=== PATIENT | female | born 1945 | race Caucasian/White ===

== ENCOUNTER 2016-09-09 08:22 | Day surgery (SDC) | payer MEDICARE ==
--- NOTE | ~2016-09-09 | EGD ---
EGD REPORT [facility] [address] [address] NAME: LUANA NESS : [birth year] STATUS : REG [facility] [place] PAT#: [id number] AGE: 71 ADM/REG DATE : 09/09/16 MR#: [id number] REPORT SERV DATE: 09/09/16 DICTATED BY: SUNSHINE DESAI DATE: 09/09/16 REPORT STATUS : Draft TRANSCRIBED BY: [employer] DATE: 09/09/16 [facility] Patient Name: Luana Ness Date of : 1945 Attending MD: SUNSHINE DESAI MD Procedure Date No Time: 09/09/2016 Procedure: Colonoscopy Indications: High risk colon cancer surveillance: Personal history of colonic polyps Referring MD: LAWSON HUERTA, LAWSON DOMINGUEZ MD Medicines: as per anesthesia Complications: No immediate complications. Procedure: Pre-Anesthesia Assessment: - ASA Grade Assessment: III - A patient with severe systemic disease. After I obtained informed consent, the scope was passed under direct vision. Throughout the procedure, the patient's blood pressure, pulse, and oxygen saturations were monitored continuously. The [facility] [id number] was introduced through the anus and advanced to the cecum, identified by appendiceal orifice and ileocecal valve. The colonoscopy was somewhat difficult due to restricted mobility of the colon, significant looping and a tortuous colon. The patient tolerated the procedure. The quality of the bowel preparation was fair. Findings: The perianal and digital rectal examinations were normal. The colon (entire examined portion) appeared normal. Impression: - The entire examined colon is normal. Recommendation: - Repeat colonoscopy in 5 years for surveillance. Procedure Code(s): --- Professional --- 95488, Colonoscopy, flexible, proximal to splenic flexure; diagnostic, with or without collection of specimen(s) by brushing or washing, with or without colon decompression (separate procedure) Diagnosis Code(s): --- Professional --- Z86.010, Personal history of colonic polyps CPT copyright 2013 [employer]. All rights reserved. EGD REPORT [facility] [address] [place] [address] NAME: LUANA NESS : [birth year] STATUS : REG [facility] [place] PAT#: [id number] AGE: 71 ADM/REG DATE : 09/09/16 MR#: [id number] REPORT SERV DATE: 09/09/16 DICTATED BY: SUNSHINE DESAI. DATE: 09/09/16 REPORT STATUS : Draft TRANSCRIBED BY: [employer] DATE: 09/09/16 The codes documented in this report are preliminary and upon health information coder review may be revised to meet current compliance requirements. SUNSHINE DESAI MD 09/09/2016 10:20 AM This report has been signed electronically. Number of Addenda: 0 Note Initiated On: 09/09/2016 9:46 AM Scope Withdrawal Time 0 hours 7 minutes 37 seconds [id number] [place] [id number]
[~2016-09-09 08:22] MED LIST: AZO-CRANBERY450 MG OR; EFFEX75 PO; LEVOTHYROXIN50 MCG PO; MELATONIN5 M1 PO; VITAMIN B-121000 MC1 SL; VITAMIN D1000 UNI1 PO; VITS; X5 PO
== END 2016-09-09 23:59 | disposition home or self-care (01) ==
LOC: DMU 08:22
PROVIDERS: Internal Medicine Gastroenterology
PROC: 0DJD8ZZ Inspection of Lower Intestinal Tract, Via Natural or Artificial Opening Endoscopic (ICD-10-PCS; principal; 2016-09-09 10:00)
DX: Z12.11 Encounter for screening for malignant neoplasm of colon (principal); Z86.010 Personal history of colon polyps; E03.9 Hypothyroidism, unspecified; G82.20 Paraplegia, unspecified; Z98.890 Other specified postprocedural states; Z99.3 Dependence on wheelchair; Z88.2 Allergy status to sulfonamides; G35 Multiple sclerosis; Z79.899 Other long term (current) drug therapy